=== PATIENT | male | born 1965 | race Caucasian/White ===

== ENCOUNTER → 2018-04-12 | Outpatient (CLI) | payer OTHER | END | disposition home or self-care (01) | LOC: RADPETMAIN 09:32 | PROVIDERS: ATTEND Radiology Radiation Oncology | DX: Z53.9 Procedure and treatment not carried out, unspecified reason (principal) ==

== ENCOUNTER → 2018-04-19 | Outpatient (CLI) | payer OTHER ==
--- NOTE | 2018-04-19 11:32 | PE ---
EXAMINATION TYPE: PET CT fusion skull to thigh DATE OF EXAM: 04/19/2018 COMPARISON: NONE HISTORY: Lung cancer initial staging study. TECHNIQUE: Following the intravenous administration of 13.657 mCi of F-18 FDG, whole body images are performed from the skull base to the midthigh. Images are reviewed on the computer in the coronal, axial, and sagittal planes. Reconstructed rotating images are created on independent workstation and reviewed on the computer. A noncontrast CT is performed in conjunction with the PET scan. SCAN: Initial Scan FINDINGS: SKULL BASE AND NECK: There is a roughly 8 mm hypermetabolic focus probable left supraclavicular danny opathy adjacent to left thyroid lobe axial image 61, max SUV is 2.9. CHEST, MEDIASTINUM, AND HILAR REGION: There is large cavitating left hilar mass encasing left lung br onchus and probable romina which is mild to moderately diffusely narrowed, there is mediastinal invas ion and subcarinal level, this area measures roughly 9.1 x 5.6 cm on axial image 94 with max SUV of 1 6.29. There is small level of focal pleural fluid inferiorly and posteriorly to this. There is additi onal groundglass opacity and edmond consolidation superior lateral aspect left lower lobe. There are a dditional suspicious nodules in the posterior aspect left upper lobe axial image 84, more posterior n odule shows mild increased hypermetabolic uptake with max tissue be of 2.63. There is hypermetabolic 9 x 7 mm right midlung nodule axial image 94 with max SUV of 3.69. There are additional thoracic hypermetabolic lymph nodes anterior superior mediastinum with largest j ust superior to brachiocephalic artery origin measuring roughly 2.2 x 1.6 cm axial image 74, max SUV is 12.56. There is abnormal prevascular 1.2 x 0.8 cm lymph node axial image 81 with max SUV of 9.34. There is a dditional left pericardial cyst tiny hypermetabolic focus difficult to localize to chest or abdomen a xial image 115 with max SUV of 2.74 measuring roughly 5 mm. ABDOMEN AND PELVIS: There is right hepatic lobe hypermetabolic hypodense lesion measuring 2.6 x 2.2 c m axial image 146, max SUV is 7.00. Additional hepatic metastatic lesion felt present near image 154 on PET images less well-seen on CT images, max SUV is 10.38 at this level. OSSEOUS STRUCTURES: No suspicious hypermetabolic uptake is present. OTHER CT: Coronary artery calcification is present which is noted marker for underlying coronary sumit ry disease. There is mild to moderate calcified plaque of the abdominal aorta extending to iliac branch vessels. Dependent density in bladder likely reflects small bladder calculi axial image 209 for reference. Enl arged prostate gland consistent with underlying BPH is present. There is facet arthropathy in the mid to lower lumbar spine noted. IMPRESSION: High-grade lung neoplasm as detailed above. TNM STAGING T4,N3,M1c AJCC STAGING Stage IVB.
== END | disposition home or self-care (01) ==
LOC: RADPETMAIN 08:04
PROVIDERS: ATTEND Radiology Radiation Oncology
DX: C34.32 Malignant neoplasm of lower lobe, left bronchus or lung (principal)
CPT/HCPCS: 78815; A9552

== ENCOUNTER → 2018-08-26 | Outpatient (CLI) | payer OTHER ==
[2018-08-26 10:26] LABS: African American GFR (CKD) >90 (>60 ml/min/1.73 sqM); Blood Urea Nitrogen 11 mg/dL (9-20)
--- NOTE | 2018-08-26 12:02 | CT ---
EXAMINATION TYPE: CT angio chest DATE OF EXAM: 08/26/2018 COMPARISON: PET/CT 04/19/2018 HISTORY: 53 year-old male left sided rib pain, PE TECHNIQUE: Contiguous axial scanning of the chest performed with IV Contrast, patient injected with 2 00 mL of Isovue 370. Coronal/sagittal MIP reconstructions performed. CT DLP: 289.7 mGycm Automated exposure control for dose reduction was used. FINDINGS: Heart normal size without pericardial effusion. Shift of the heart towards the left due to left hemit horacic volume loss. No flattening of the interventricular septum reflux of contrast into the hepatic veins. Aorta normal caliber with conventional arch vessel branching anatomy. Satisfactory opacification of pulmonary arterial system. Soft tissue encasement of the left main pulmonary artery narrowing its caliber. No definite pulmonary embolus seen. Progressive soft tissue along superior mediastinum partially encasing the superior aspect of the aort ic arch. Redemonstrated is soft tissue in the left hilar infrahilar region cutting off the left lower lobe mas s involving the collapsed left lower lobe and some underlying cavitary change. Multiple left-sided pulmonary nodules redemonstrated. Some of these nodules/masses appear improved we ll new lesions are present, for example, numerous nodules in the lingula axial image 67 measuring up to 1 cm. Focal areas of patchy opacities in the right lower lobe, axial image 80 and 83 are new. Some of the previously seen pulmonary nodules in the right are no longer identified but new nodules a re noted measuring up to 1.1 cm. Small left pleural effusion. Small hiatal hernia. Visualized upper abdomen show similar mild diffuse thickening of the left adrena l gland. Bones: No osseous destructive process seen. Moderate multilevel degenerative disc disease. IMPRESSION: 1. NO EVIDENCE FOR PULMONARY EMBOLUS. 2. REDEMONSTRATED LEFT HILAR AND INFRAHILAR NEOPLASM CUTTING OFF THE LEFT LOWER LOBE BRONCHUS AND INV OLVING THE COLLAPSED LEFT LOWER LOBE. 3. THERE ARE MIXED FINDINGS IN THE INTERVAL WITH RESOLUTION OF SOME OF THE PREVIOUS SATELLITE MASSES AND CONTRALATERAL RIGHT-SIDED PULMONARY NODULES BUT WITH NEW BILATERAL PULMONARY NODULES. OVERALL PRO GRESSION IS SUGGESTED GIVEN PROGRESSIVE CONGLOMERATE LYMPHADENOPATHY IN THE SUPERIOR MEDIASTINUM. 4. A COUPLE NEW PATCHY INFILTRATES IN THE RIGHT LOWER LOBE COULD REPRESENT INFECTIOUS/INFLAMMATORY FO CI. CORRELATE FOR ANY SYMPTOMS OF PNEUMONIA.
== END | disposition home or self-care (01) ==
LOC: RADCTMAIN 09:47
PROVIDERS: ATTEND Internal Medicine Hematology & Oncology
DX: R91.8 Other nonspecific abnormal finding of lung field (principal)
CPT/HCPCS: 82565; 84520; 71275; Q9967

== ENCOUNTER → 2019-01-06 | Outpatient (CLI) | payer OTHER ==
--- NOTE | 2019-01-06 17:59 | MR ---
EXAMINATION TYPE: MR brain wo/w con DATE OF EXAM: 01/06/2019 COMPARISON: None HISTORY: Lung Cancer / Dizziness / Unsteady Gait TECHNIQUE: Multiplanar, multisequence images of the brain and brainstem is performed without and with IV contras t, utilizing 6 mL intravenous Gadavist . FINDINGS: There is mild cerebral cortical atrophy. There is no mass effect nor midline shift. There i s no sign of intracranial hemorrhage. There is no evidence of acute cortical infarct. On the T2 and F LAIR images there are a few scattered foci of increased signal in the periventricular white matter. T otal number is less than 10 and the largest measures 8 mm in the right parietal lobe. Brainstem is in tact. Corpus callosum is intact. Sella turcica appears intact. The contrast images show no pathologic enhancement. There is normal contrast opacification of the venous sinuses. IMPRESSION: Mild atrophy. No evidence of metastatic disease. Mild white matter signal changes could relate to small vessel ischemia or demyelinating disease.
== END | disposition home or self-care (01) ==
LOC: RADMRIMAIN 16:57
PROVIDERS: ATTEND Internal Medicine Hematology & Oncology
DX: C34.30 Malignant neoplasm of lower lobe, unspecified bronchus or lung (principal); G31.9 Degenerative disease of nervous system, unspecified
CPT/HCPCS: 70553; A9585

== ENCOUNTER 2019-01-09 13:25 | Inpatient (IN) | payer OTHER ==
[2019-01-09] MEDS ORDERED: SODIUM CHLORIDE 0.9% 1,000 ML IV STA (14:05)
[2019-01-09] MEDS ORDERED: SODIUM CHLORIDE 0.9% 500 ML 500 ML IV STA (14:05)
[2019-01-09] MEDS ORDERED: HYDROmorphone 0.5 MG/0.5 ML SYRINGE IVP STA (14:10)
[2019-01-09] MEDS ORDERED: ADENOSINE 3 MG/ML 2 ML VIAL IVP STA (14:15)
[2019-01-09 14:31] LABS: Basophils # (A) 0.2 k/uL (0-0.2); Basophils % (A) 2 %; Eosinophils # (A) 0.3 k/uL (0-0.7); Eosinophils % (A) 2 %; HCT 43.2 % (39.0-53.0); HGB 13.6 gm/dL (13.0-17.5); Lymphocytes # (A) 0.4 k/uL (1.0-4.8); Lymphocytes % (A) 3 %; MCH 25.8 pg (25.0-35.0); MCHC 31.6 g/dL (31.0-37.0); MCV 81.6 fL (80.0-100.0); Mean Platelet Volume 7.5; Monocytes # (A) 0.6 k/uL (0-1.0); Monocytes % (A) 6 %; Neutrophils # (A) 9.2 k/uL (1.3-7.7); Neutrophils % (A) 85 %; Platelet Count 324 k/uL (150-450); RBC 5.29 m/uL (4.30-5.90); WBC 10.8 k/uL (3.8-10.6)
[2019-01-09] MEDS ORDERED: DILTIAZEM DRIP BOLUS FROM BAG 1 MG SOLN IV ONE (14:32)
[2019-01-09 14:41] LABS: ALT 48 U/L (21-72); AST 34 U/L (17-59); African American GFR (CKD) >90 (>60 ml/min/1.73 sqM); Albumin 3.4 g/dL (3.5-5.0); Alkaline Phosphatase 397 U/L (38-126); Anion Gap 11 mmol/L; Blood Urea Nitrogen 16 mg/dL (9-20); Calcium 11.5 mg/dL (8.4-10.2); Carbon Dioxide 26 mmol/L (22-30); Chloride 100 mmol/L (98-107); Glucose 134 mg/dL (74-99); Magnesium 1.9 mg/dL (1.6-2.3); Non-African American GFR(CKD) >90 (>60 ml/min/1.73 sqM); Potassium 4.1 mmol/L (3.5-5.1); Sodium 137 mmol/L (137-145); Total Bilirubin 0.6 mg/dL (0.2-1.3); Total Protein 6.7 g/dL (6.3-8.2)
[2019-01-09 14:46] LABS: D-Dimer 0.35 mg/L FEU (<0.60); Partial Thromboplastin Time 24.9 sec (22.0-30.0); Prothrombin Time 10.8 sec (9.0-12.0)
[2019-01-09] MEDS: DILTIAZEM 125 MG in SODIUM CHLORIDE 0.9% 100 ML IV SCH (14:48)
[2019-01-09] MEDS ORDERED: HEPARIN SODIUM,PORCINE 5,000 UNIT/ML 1 ML VIAL IV ONE (15:03)
[2019-01-09] MEDS ORDERED: HEPARIN SOD,PORK IN 0.45% NACL 25,000 UNIT in 0.45% NACL 1 250ML.BAG IV SCH (15:15)
--- NOTE | 2019-01-09 15:26 | ED ---
Medical Decision Making - Medical Decision Making PA attestation: I, Dr. Jose Edwards, personally saw and examined the patient. I have reviewed and agree with the resident/PA findings, including all diagnostic interpretations and treatment plans as written unless otherwise stated. I was present for the fox portions of any procedures performed and inclusive time noted for any critical care statement. Patient seen and evaluated along with physician Asst. Amanda Malin. Patient was brought to the emergency department for uncontrolled pain. Patient's history of liver and lung cancer. He was redirected from pain clinic to us. Patient was found to have initial heart rate in the 170s. There was concern for superventricular tachycardia. Patient is given adenosine which revealed underlying atrial flutter T waves. Patient started on Cardizem and heparin. Patient be admitted for new-onset atrial flutter. Patient is negative d-dimer. He has no symptoms to suggest pulmonary embolus at this time. Patient's rate was controlled with Cardizem infusion and bolus. Repeat vitals after rate c ontrol are stable. Patient will be admitted for new-onset atrial flutter/tachycardia dysrhythmia. Cardiology will be consulted. - Lab Data Result diagrams: 01/09/19 14:19 01/09/19 14:19 Lab Results 01/09/19 01/09/19 01/09/19 Range/Units 14:19 14:19 14:19 WBC 10.8 H (3.8-10.6) k/uL RBC 5.29 (4.30-5.90) m/uL Hgb 13.6 (13.0-17.5) gm/dL Hct 43.2 (39.0-53.0) % MCV 81.6 (80.0-100.0) fL MCH 25.8 (25.0-35.0) pg MCHC 31.6 (31.0-37.0) g/dL RDW 13.0 (11.5-15.5) % Plt Count 324 (150-450) k/uL Neutrophils % 85 % Lymphocytes % 3 % Monocytes % 6 % Eosinophils % 2 % Basophils % 2 % Neutrophils # 9.2 H (1.3-7.7) k/uL Lymphocytes # 0.4 L (1.0-4.8) k/uL Monocytes # 0.6 (0-1.0) k/uL Eosinophils # 0.3 (0-0.7) k/uL Basophils # 0.2 (0-0.2) k/uL PT 10.8 (9.0-12.0) sec INR 1.0 (<1.2) APTT 24.9 (22.0-30.0) sec D-Dimer 0.35 (<0.60) mg/L FEU Sodium 137 (137-145) mmol/L Potassium 4.1 (3.5-5.1) mmol/L Chloride 100 (98-107) mmol/L Carbon Dioxide 26 (22-30) mmol/L Anion Gap 11 mmol/L BUN 16 (9-20) mg/dL Creatinine 0.51 L (0.66-1.25) mg/dL Est GFR (CKD-EPI)AfAm >90 (>60 ml/min/1.73 sqM) Est GFR (CKD-EPI)NonAf >90 (>60 ml/min/1.73 sqM) Glucose 134 H (74-99) mg/dL Plasma Lactic Acid Delbert (0.7-2.0) mmol/L Calcium 11.5 H (8.4-10.2) mg/dL Magnesium 1.9 (1.6-2.3) mg/dL Total Bilirubin 0.6 (0.2-1.3) mg/dL AST 34 (17-59) U/L ALT 48 (21-72) U/L Alkaline Phosphatase 397 H (38-126) U/L Troponin I (0.000-0.034) ng/mL Total Protein 6.7 (6.3-8.2) g/dL Albumin 3.4 L (3.5-5.0) g/dL 01/09/19 01/09/19 Range/Units 14:19 14:35 WBC (3.8-10.6) k/uL RBC (4.30-5.90) m/uL Hgb (13.0-17.5) gm/dL Hct (39.0-53.0) % MCV (80.0-100.0) fL MCH (25.0-35.0) pg MCHC (31.0-37.0) g/dL RDW (11.5-15.5) % Plt Count (150-450) k/uL Neutrophils % % Lymphocytes % % Monocytes % % Eosinophils % % Basophils % % Neutrophils # (1.3-7.7) k/uL Lymphocytes # (1.0-4.8) k/uL Monocytes # (0-1.0) k/uL Eosinophils # (0-0.7) k/uL Basophils # (0-0.2) k/uL PT (9.0-12.0) sec INR (<1.2) APTT (22.0-30.0) sec D-Dimer (<0.60) mg/L FEU Sodium (137-145) mmol/L Potassium (3.5-5.1) mmol/L Chloride (98-107) mmol/L Carbon Dioxide (22-30) mmol/L Anion Gap mmol/L BUN (9-20) mg/dL Creatinine (0.66-1.25) mg/dL Est GFR (CKD-EPI)AfAm (>60 ml/min/1.73 sqM) Est GFR (CKD-EPI)NonAf (>60 ml/min/1.73 sqM) Glucose (74-99) mg/dL Plasma Lactic Acid Delbert 1.7 (0.7-2.0) mmol/L Calcium (8.4-10.2) mg/dL Magnesium (1.6-2.3) mg/dL Total Bilirubin (0.2-1.3) mg/dL AST (17-59) U/L ALT (21-72) U/L Alkaline Phosphatase (38-126) U/L Troponin I <0.012 (0.000-0.034) ng/mL Total Protein (6.3-8.2) g/dL Albumin (3.5-5.0) g/dL Critical Care Time Critical Care Time: Yes (31) Disposition Clinical Impression: Atrial flutter Disposition: ADMITTED IP TO THIS HOSP Condition: Fair Referrals: Nonstaff,Physician [Primary Care Provider] - 1-2 days Decision Time: 15:26
--- NOTE | 2019-01-09 15:27 | ED ---
Recheck HPI - General Chief Complaint: Recheck/Abnormal Lab/Rx Stated Complaint: CA PT, Side pain Time Seen by Provider: 01/09/19 13:33 Source: patient Mode of arrival: ambulatory Limitations: no limitations - History of Present Illness Initial Comments: 53-year-old male presenting to the emergency department today for chief complaint of pain and medication refill. Patient states that he has had issue between his oncologist and pain management he states his oncologist stated he must see pain management for pain medications however pain management because he is on Xanax for anxiety refuse to see him. Patient states he became anxious and having what he is called and anxiety attack at the infusion center. He states his pain is all over and he has no pain medications. He was told to come to the emergency department for medication refill. Patient also noted upon history taking that he has had generalized weakness ongoing for the past week with slight increase of baseline SOB. Admits to some left side discomfort. Patient denies leg swelling, hemoptysis, fever, increasing cough, nausea, epigastric pain. Remaining review of systems negative upon arrival patient's heart rate normal, however during initial history taking i personally took HR and pulse ox with HR of 171, patient transferred to trauma bay. - Related Data Allergies Allergy/AdvReac Type Severity Reaction Status Date / Time No Known Allergies Allergy Verified 01/09/19 13:32 Review of Systems ROS Statement: Those systems with pertinent positive or pertinent negative responses have been documented in the HPI. ROS Other: All systems not noted in ROS Statement are negative. Past Medical History Past Medical History: Coronary Artery Disease (CAD) Additional Past Medical History / Comment(s): Liver and lung CA. History of Any Multi-Drug Resistant Organisms: None Reported Past Surgical History: No Surgical Hx Reported Past Psychological History: No Psychological Hx Reported Smoking Status: Current every day smoker Past Alcohol Use History: None Reported Past Drug Use History: None Reported General Exam - General Exam Comments Initial Comments: General: The patient is awake and alert, in no distress Eye: +3 mm pupils are equal, round and reactive to light, extra-ocular movements are intact. No nystagmus. There is normal conjunctiva bilaterally. No signs of icterus. Ears, nose, mouth and throat: There are moist mucous membranes and no oral lesions. Neck: The neck is supple, there is no tenderness or JVD. Cardiovascular: There is a regular rate and rhythm. No murmur, rub or gallop is appreciated. Respiratory: Respirations are non-labored, breath sounds are equal. Mild expiratory wheeze, some rhonchi. No stridor, rales.. Gastrointestinal: Soft, non-distended, non-tender abdomen without masses or organomegaly noted. There is no rebound or guarding present. Musculoskeletal: Normal ROM, no tenderness. Strength 5/5. Sensation intact. Radial and DP pulses equal bilaterally 2+. Neurological: A&O x 3. CN II-XII intact grossly, There are no obvious motor or sensory deficits. Coordination appears grossly intact. Speech is normal. Skin: Skin is warm and dry and no rashes or lesions are noted. no LE edema b/l. No calf pain. Psychiatric: Cooperative, appropriate mood & affect, normal judgment. Limitations: no limitations Course Vital Signs 01/09/19 01/09/19 01/09/19 13:28 14:25 14:49 Temperature 98.6 F Pulse Rate 90 168 H Respiratory 22 16 Rate Blood Pressure 95/57 110/62 107/83 O2 Sat by Pulse 97 100 Oximetry 01/09/19 14:52 Temperature Pulse Rate 114 H Respiratory Rate Blood Pressure 99/68 O2 Sat by Pulse Oximetry Medical Decision Making - Medical Decision Making 53-year-old male presenting today for chief complaint of medication refill. Found to be in tachycardia at 171. Failed bearing down. Pt transferred to trauma bay. Attending notified. Recommended adenosine after reviewing EKG. Repeat EKG after adenosine reveals Atrial flutter placed on heparin and cardizem drip. Patient has no known history will be admitted for cardiology consultation. Patient agreeable remains dynamically stable with the emergency department. - Lab Data Result diagrams: 01/09/19 14:19 01/09/19 14:19 Lab Results 01/09/19 01/09/19 01/09/19 Range/Units 14:19 14:19 14:19 WBC 10.8 H (3.8-10.6) k/uL RBC 5.29 (4.30-5.90) m/uL Hgb 13.6 (13.0-17.5) gm/dL Hct 43.2 (39.0-53.0) % MCV 81.6 (80.0-100.0) fL MCH 25.8 (25.0-35.0) pg MCHC 31.6 (31.0-37.0) g/dL RDW 13.0 (11.5-15.5) % Plt Count 324 (150-450) k/uL Neutrophils % 85 % Lymphocytes % 3 % Monocytes % 6 % Eosinophils % 2 % Basophils % 2 % Neutrophils # 9.2 H (1.3-7.7) k/uL Lymphocytes # 0.4 L (1.0-4.8) k/uL Monocytes # 0.6 (0-1.0) k/uL Eosinophils # 0.3 (0-0.7) k/uL Basophils # 0.2 (0-0.2) k/uL PT 10.8 (9.0-12.0) sec INR 1.0 (<1.2) APTT 24.9 (22.0-30.0) sec D-Dimer 0.35 (<0.60) mg/L FEU Sodium 137 (137-145) mmol/L Potassium 4.1 (3.5-5.1) mmol/L Chloride 100 (98-107) mmol/L Carbon Dioxide 26 (22-30) mmol/L Anion Gap 11 mmol/L BUN 16 (9-20) mg/dL Creatinine 0.51 L (0.66-1.25) mg/dL Est GFR (CKD-EPI)AfAm >90 (>60 ml/min/1.73 sqM) Est GFR (CKD-EPI)NonAf >90 (>60 ml/min/1.73 sqM) Glucose 134 H (74-99) mg/dL Plasma Lactic Acid Delbert (0.7-2.0) mmol/L Calcium 11.5 H (8.4-10.2) mg/dL Magnesium 1.9 (1.6-2.3) mg/dL Total Bilirubin 0.6 (0.2-1.3) mg/dL AST 34 (17-59) U/L ALT 48 (21-72) U/L Alkaline Phosphatase 397 H (38-126) U/L Troponin I (0.000-0.034) ng/mL Total Protein 6.7 (6.3-8.2) g/dL Albumin 3.4 L (3.5-5.0) g/dL 11/22/19 11/22/19 Range/Units 14:19 14:35 WBC (3.8-10.6) k/uL RBC (4.30-5.90) m/uL Hgb (13.0-17.5) gm/dL Hct (39.0-53.0) % MCV (80.0-100.0) fL MCH (25.0-35.0) pg MCHC (31.0-37.0) g/dL RDW (11.5-15.5) % Plt Count (150-450) k/uL Neutrophils % % Lymphocytes % % Monocytes % % Eosinophils % % Basophils % % Neutrophils # (1.3-7.7) k/uL Lymphocytes # (1.0-4.8) k/uL Monocytes # (0-1.0) k/uL Eosinophils # (0-0.7) k/uL Basophils # (0-0.2) k/uL PT (9.0-12.0) sec INR (<1.2) APTT (22.0-30.0) sec D-Dimer (<0.60) mg/L FEU Sodium (137-145) mmol/L Potassium (3.5-5.1) mmol/L Chloride (98-107) mmol/L Carbon Dioxide (22-30) mmol/L Anion Gap mmol/L BUN (9-20) mg/dL Creatinine (0.66-1.25) mg/dL Est GFR (CKD-EPI)AfAm (>60 ml/min/1.73 sqM) Est GFR (CKD-EPI)NonAf (>60 ml/min/1.73 sqM) Glucose (74-99) mg/dL Plasma Lactic Acid Delbert 1.7 (0.7-2.0) mmol/L Calcium (8.4-10.2) mg/dL Magnesium (1.6-2.3) mg/dL Total Bilirubin (0.2-1.3) mg/dL AST (17-59) U/L ALT (21-72) U/L Alkaline Phosphatase (38-126) U/L Troponin I <0.012 (0.000-0.034) ng/mL Total Protein (6.3-8.2) g/dL Albumin (3.5-5.0) g/dL Disposition Clinical Impression: Atrial flutter Disposition: ADMITTED IP TO THIS HOSP Condition: Fair Referrals: Nonstaff,Physician [Primary Care Provider] - 1-2 days
--- NOTE | 2019-01-09 15:35 | XR ---
EXAMINATION TYPE: XR chest 2V DATE OF EXAM: 01/09/2019 COMPARISON: CT dated 08/26/2018 HISTORY: Weakness. Lung cancer per patient history. TECHNIQUE: Frontal and lateral views of the chest are obtained. FINDINGS: There is left hemithorax spine loss and redemonstration of numerous bilateral pulmonary no dules. Leftward mediastinal shift secondary to left basilar atelectasis in this patient with known pa rtial lung collapse and left basilar pulmonary mass. Multiple old fracture deformities are seen on th e right ribs. Cardiomediastinal silhouette is within normal limits. Gaseous distention of the stomach . Pleural thickening is redemonstrated as seen on the prior CT of 08/26/2018. IMPRESSION: Known bilateral pulmonary nodules with left lower lobe partial collapse and pulmonary ma ss as seen on the CT dated 09/05/2018.
[2019-01-09] MEDS ORDERED: NITROGLYCERIN SL TABS 0.4 MG TAB SUBLINGUAL PRN (15:39)
[2019-01-09] MEDS ORDERED: SODIUM CHLORIDE 0.9% 500 ML 500 ML IV ONE (15:42)
--- NOTE | 2019-01-09 16:48 | P.HPIM ---
History of Present Illness H&P Date: 01/09/19 Chief Complaint: pain all over 53-year-old male with a reported past medical history of stage IV lung cancer with metastasis to liver and lymph nodes presenting to the emergency department today for chief complaint of pain and medication refill. The patient is usually followed by Dr. Sánchez in clinic the patient reports to be on chemotherapy with keytruda infusions over the last 3 months, Patient states that he has had issue between his oncologist and pain management he states his oncologist stated he must see pain management for pain medications however pain management because he is on Xanax for anxiety refuse to see him. Apparently the patient was taking approximately 5-6 tabs of [place] 10mg daily. Patient states he became anxious and having what he is called and anxiety attack at the infusion center. He states his pain is all over and he has no pain medications. He was told to come to the emergency department for medication refill. Patient reports generalized weakness and episodes of lightheadedness during the last week. Patient denies leg swelling, hemoptysis, fever, increasing cough, nausea, epigastric pain. Apparently patient's daughter who is a nurse reports that the patient has had issues with atrial fibrillation previously has been on metoprolol, but this was discontinued secondary to the patient's blood pressure being unable to tolerate the medication due to hypotension. In the ER patient a comprehensive workup the patient was given IV adenosine [address] and the Cardizem drip and started on IV heparin Past Medical History Past Medical History: Coronary Artery Disease (CAD) Additional Past Medical History / Comment(s): Liver and lung CA. History of Any Multi-Drug Resistant Organisms: None Reported Past Surgical History: No Surgical Hx Reported Past Psychological History: No Psychological Hx Reported Smoking Status: Current every day smoker Past Alcohol Use History: None Reported Past Drug Use History: None Reported Medications and Allergies Home Medications Medication Instructions Recorded Confirmed Type ALPRAZolam [Xanax] 1 mg PO BID 01/09/19 01/09/19 History HYDROcodone/APAP 10-325MG [[place] 1 tab PO TID 01/09/19 01/09/19 History 10-325] Nicotine 14Mg/24Hr Patch [Habitrol 1 patch TRANSDERM DAILY 01/09/19 01/09/19 History 14Mg/24Hr Patch] Allergies Allergy/AdvReac Type Severity Reaction Status Date / Time No Known Allergies Allergy Verified 01/09/19 15:51 Physical Exam Vitals: Vital Signs Temp Pulse Resp BP Pulse Ox 01/09/19 15:43 96 16 97/72 99 01/09/19 14:52 114 H 99/68 01/09/19 14:49 168 H 16 107/83 100 01/09/19 14:25 110/62 01/09/19 13:28 98.6 F 90 22 95/57 97 Intake and Output 01/09/19 01/09/19 01/09/19 06:59 14:59 22:59 Other: Weight 58.967 kg Constitutional: No acute distress, conversant, pleasant Eyes: Anicteric sclerae, moist conjunctiva, no lid-lag, PERRLA ENMT: NC/AT,Oropharynx clear, no erythema, exudates Neck:Supple, FROM, no masses, or JVD, No carotid bruits; No thyromegaly Lungs: Clear to auscultation, Clear to percussion, Normal respiratory effort, no accessory muscle use Cardiovascular: Irregularly irregular, No murmurs, gallops, or rubs no peripheral edema Abdominal: Soft Nontender, nom distended, no guarding, no rebound or rigidity, Normoactive bowel sounds No hepatomegaly, No splenomegaly, No palpable mass No abdominal wall hernia noted Skin: Normal temperature, tone, texture, turgor, No induration No subcutaneous nodules, No rash, lesions, No ulcers Extremities:No digital cyanosis No clubbing, Pedal pulses intact and symmetrical Radial pulses intact and symmetrical Normal gait and station, No calf tenderness Psychiatric: Alert and oriented to person, place and time, Appropriate affect Intact judgement Neuro: Muscles Strength 5/5 in all 4 extremities, Sensation to light touch g rossly present throughout, Cranial nerves II-XII grossly intact. No focal sensory deficits Results CBC & Chem 7: 01/09/19 14:19 01/09/19 14:19 Labs: Abnormal Lab Results - Last 24 Hours (Table) 01/09/19 01/09/19 Range/Units 14: 14:19 WBC 10.8 H (3.8-10.6) k/uL Neutrophils # 9.2 H (1.3-7.7) k/uL Lymphocytes # 0.4 L (1.0-4.8) k/uL Creatinine 0.51 L (0.66-1.25) mg/dL Glucose 134 H (74-99) mg/dL Calcium 11.5 H (8.4-10.2) mg/dL Alkaline Phosphatase 397 H (38-126) U/L Albumin 3.4 L (3.5-5.0) g/dL Assessment and Plan Assessment: Assessment Atrial fibrillation with RVR Stage IV lung cancer Intractable pain h/o paroxysmal Afib Anxiety disorder Plan: Patient is admitted anticipated greater than 2 midnight stay with A. fib/atrial flutter with RVR after presenting to the ER with intractable pain patient was given adenosine 2 L of fluids and placed on a Cardizem drip along with IV heparin. Patient has continued to monitored closely on telemetry with plans for cardiology consultation, will order TSH and a 2-D echocardiogram. Chest x-ray showed known bilateral pulmonary nodules with left lower lobe partial collapse and pulmonary masses seen on the CT and the patient has a known history of stage IV lung cancer that is seen in oncology clinic by Dr. Sánchez who will be consulted. We'll try the patient on MS Contin and Tylenol. We'll continue to monitor patient closely and continue to follow his clinical course. CODE STATUS full code Discussed plan of care with: Patient and his daughter medical decision surrogate: Daughter Rebeca Anticipated discharge place: Home Prophylaxis: On IV heparin
[2019-01-09] MEDS ORDERED: ACETAMINOPHEN TAB 325 MG TAB PO PRN (16:54)
[2019-01-09] MEDS: MORPHINE SULFATE ER 15 MG TABLET PO SCH (17:41)
[2019-01-09] MEDS: SODIUM CHLORIDE 0.9% 1,000 ML IV SCH (18:48)
[2019-01-09] MEDS: ALPRAZolam 1 MG TAB PO SCH (19:55)
[2019-01-09 19:56] LABS: Appearance,Urine Clear (Clear); Bilirubin,Urine Negative (Negative); Blood,Urine Small (Negative); Color,Urine Yellow; Glucose,Urine (UA) Negative (Negative); Ketones,Urine Negative (Negative); Leukocyte Esterase,Urine Negative (Negative); Mucus,Urine Rare /hpf; Nitrite,Urine Negative (Negative); Protein,Urine Negative (Negative); RBC,Urine 5 /hpf (0-5); Specific Gravity,Urine 1.015 (1.001-1.035); Urobilinogen,Urine <2.0 mg/dL (<2.0)
[2019-01-09] MEDS: HEPARIN SODIUM,PORCINE 5,000 UNIT/ML 1 ML VIAL IV PRN (22:11)
[2019-01-09] MEDS ORDERED: MORPHINE SULFATE 4 MG/ML SYRINGE IVP STA (23:08)
[2019-01-10 03:56] LABS: Cholesterol 113 mg/dL (<200); HDL Cholesterol 30 mg/dL (40-60); LDL Cholesterol,Calculated 71 mg/dL (0-99); Triglycerides 59 mg/dL (<150)
[2019-01-10] MEDS: HEPARIN SODIUM,PORCINE 5,000 UNIT/ML 1 ML VIAL IV PRN (04:07)
[2019-01-10] MEDS: SODIUM CHLORIDE 0.9% 1,000 ML IV SCH (04:07)
[2019-01-10] MEDS: DILTIAZEM 125 MG in SODIUM CHLORIDE 0.9% 100 ML IV SCH (04:08)
[2019-01-10] MEDS: ALPRAZolam 1 MG TAB PO SCH ×2 (08:18→20:38)
[2019-01-10] MEDS: MORPHINE SULFATE ER 15 MG TABLET PO SCH (08:18)
[2019-01-10] MEDS ORDERED: ASPIRIN 325 MG TAB PO SCH (09:00)
[2019-01-10 11:45] VITALS: BMI 19.1
--- NOTE | 2019-01-10 14:05 | ECHOF ---
Referral Reason:atrial flutter/afib MEASUREMENTS -------- HEIGHT: 172.7 cm WEIGHT: 56.7 kg BP: 159/60 RVIDd: 3.1 cm (< 3.3) IVSd: 1.0 cm (0.6 - 1.1) LVIDd: 4.1 cm (3.9 - 5.3) LVPWd: 1.5 cm (0.6 - 1.1) IVSs: 1.5 cm LVIDs: 3.1 cm LVPWs: 2.0 cm LA Diam: 3.6 cm (2.7 - 3.8) LAESV Index (A-L): 21.46 ml/m Ao Diam: 3.4 cm (2.0 - 3.7) AV Cusp: 1.8 cm (1.5 - 2.6) LA Diam: 3.4 cm (2.7 - 3.8) MV EXCURSION: 17.918 mm (> 18.000) MV EF SLOPE: 119 mm/s (70 - 150) EPSS: 0.5 cm MV E Rigoberto: 0.60 m/s MV DecT: 203 ms MV A Rigoberto: 0.81 m/s MV E/A Ratio: 0.74 RAP: 5.00 mmHg RVSP: 34.14 mmHg FINDINGS -------- Sinus rhythm. This was a technically good study. LV size, wall thickness and systolic function are normal, with an EF greater than 55%. The left sandi tricular size is normal. Overall left ventricular systolic function is normal with, an EF between 5 5 - 60 %. The diastolic filling pattern is normal for the age of the patient 9.25. The right ventricle is normal in size. Normal LA size by volume 22+/-6 ml/m2. The right atrial size is normal. The aortic valve is trileaflet, and appears structurally normal. No aortic stenosis or regurgitation. The mitral valve leaflets are mildly thickened. Mild mitral regurgitation is present. Mild tricuspid regurgitation present. Right ventricular systolic pressure is normal at < 35 mmHg. There is no evidence of pulmonary hypertension. There is no pulmonic regurgitation present. The aortic root size is normal. There is no pericardial effusion. CONCLUSIONS -------- 1. Sinus rhythm. 2. This was a technically good study. 3. LV size, wall thickness and systolic function are normal, with an EF greater than 55%. 4. The left ventricular size is normal. 5. Overall left ventricular systolic function is normal with, an EF between 55 - 60 %. 6. The diastolic filling pattern is normal for the age of the patient 9.25 7. Normal LA size by volume 22+/-6 ml/m2. 8. The aortic valve is trileaflet, and appears structurally normal. No aortic stenosis or regurgitati on. 9. The mitral valve leaflets are mildly thickened. 10. Mild mitral regurgitation is present. 11. Mild tricuspid regurgitation present. 12. Right ventricular systolic pressure is normal at < 35 mmHg. 13. There is no pulmonic regurgitation present. 14. The aortic root size is normal. 15. There is no pericardial effusion. CHRONOGRAPH OPERATOR: Joycelyn Walton RDCS
--- NOTE | 2019-01-10 16:32 | CONS ---
CONSULTATION Mr. Specne is a 53-year-old male with stage IV lung CA, receiving chemotherapy by Dr. Sánchez, who presented because of generalized discomfort for pain management. In the emergency room, he was noted to be in atrial flutter with rapid ventricular response. He is back in sinus mechanism. According to the patient, he has no history of atrial arrhythmia, although the note says that he had a prior episode of atrial arrhythmia including atrial fibrillation and was on metoprolol that was stopped because of hypotension. The patient did not feel any palpitation. He is unaware of the arrhythmia. He denies any dizziness. He denies any syncope, but he has the valles that he gets on and off. He has a history of lung cancer as noted. He has lost weight. He has no PND or orthopnea. He has no history of stroke. He had a remote history of hypertension, but not recently. He has not been on any medication. He has stopped smoking 4 months ago. MEDICATION: His only medications at home include Cozad, Xanax and the nicotine patch in addition to his chemotherapy. REVIEW OF SYSTEMS: RESPIRATORY system: He has dyspnea on exertion, cough. He has the lung cancer. GI system: No recent GI bleeding. No peptic ulcer disease. system: No dysuria or hematuria. Nervous system: No stroke or seizure. Social history: No alcohol abuse. He has stopped smoking as noted. PHYSICAL EXAMINATION: 53-year-old male, alert, oriented, no apparent distress. Appears older than stated age. Blood pressure running in the low 100s to high 90s. Heart rate down to the 70s. HEAD: Normocephalic. Eyes: Sclerae anicteric. NECK: Good carotid upstroke. No bruit. LUNGS decreased air exchange. No wheezes. HEART: Regular rate and rhythm S1, S2. No S3. No rub appreciated. ABDOMEN: Soft, nontender. Positive bowel sounds. No organomegaly. EXTREMITIES: No edema. LAB DATA: Lab data revealed troponin less than 0.012 and 0.015. BUN and creatinine 16 and 0.51. Hemoglobin of 13.6, white blood cell of 10.8. TSH of 1.74. Cholesterol 113, LDL of 71. EKG revealed atrial flutter with 2:[address]-T wave changes. Patient is in sinus mechanism at this time. IMPRESSION: 1. Atrial fibrillation-flutter. The patient is unaware of the arrhythmia. According to the notes, the patient had a prior history of atrial fibrillation, although he denies any similar events. 2. History of stage IV lung cancer. 3. Prior history of smoking. RECOMMENDATION: Patient Chads Vasc 2 score is 0. At this time, I will stop the heparin and the Cardizem. I will obtain echocardiogram with Doppler. I will restart him on low-dose beta chandu, increase his level of activity and depending on his progress, further recommendations will be made. Thank you for this consult. We will follow with you. MMODL / IJN: [id number] /
--- NOTE | 2019-01-10 16:35 | P.PN ---
Subjective Progress Note Date: 01/10/19 The patient's and examined at bedside, reporting his pain is satisfactorily controlled, currently converted to sinus rhythm overnight. Seen By cardiology earlier today. We'll follow-up echocardiogram results. No acute events overnight, his blood pressure continues to be borderline patient asymptomatic Objective - Vital Signs Vital signs: Vital Signs Temp 97.8 F 01/10/19 15:51 Pulse 78 01/10/19 15:51 Resp 20 01/10/19 15:51 BP 89/61 01/10/19 15:51 Pulse Ox 98 01/10/19 15:51 Intake & Output 01/09/19 01/10/19 01/10/19 18:59 06:59 18:59 Intake Total 2120 544.655 5923 Output Total 1400 1150 Balance 2120 -1182.305 370 Weight 58.967 kg 56.9 kg 56.9 kg Intake: IV 500 Sodium Chloride 0.9% 500 500 ml 500 ml @ 999 mls/hr IV .Q31M [facility] Rx#:[id number] Amount of Fluid Infused ( 1500 ml) Intake, IV Titration 217.695 800 Amount Diltiazem 125 mg In 125 Sodium Chloride 0.9% 100 ml @ 10 MG/HR 10 mls/hr IV .[id number] [facility] Rx#: [id number] Heparin Sod,Pork in 0.45% 92.695 NaCl 25,000 unit In 0.45 % NaCl 1 250ml.bag @ 12 UNITS/KG/HR 7.076 mls/hr IV .Q24H [facility] Rx#: [id number] Sodium Chloride 0.9% 1, 800 000 ml @ 100 mls/hr IV . Q10H [facility] Rx#:[id number] Oral 120 720 Output: Urine 1400 1150 Other: Voiding Method Urinal Urinal # Voids 1 - Exam Constitutional: No acute distress, conversant, pleasant, cachectic Eyes: Anicteric sclerae, moist conjunctiva, no lid-lag, PERRLA ENMT: NC/AT,Oropharynx clear, no erythema, exudates Neck:Supple, FROM, no masses, or JVD, No carotid bruits; No thyromegaly Lungs: Clear to auscultation, Clear to percussion, Normal respiratory effort, no accessory muscle use Cardiovascular: Heart regular in rate and rhythm, No murmurs, gallops, or rubs no peripheral edema Abdominal: Soft Nontender, nom distended, no guarding, no rebound or rigidity, Normoactive bowel sounds No hepatomegaly, No splenomegaly, No palpable mass No abdominal wall hernia noted Skin: Normal temperature, tone, texture, turgor, No induration No subcutaneous nodules, No rash, lesions, No ulcers Extremities:No digital cyanosis No clubbing, Pedal pulses intact and symmetrical Radial pulses intact and symmetrical Normal gait and station, No calf tenderness Psychiatric: Alert and oriented to person, place and time, Appropriate affect Intact judgement Neuro: Muscles Strength 5/5 in all 4 extremities, Sensation to light touch grossly present throughout, Cranial nerves II-XII grossly intact. No focal sensory deficits - Labs CBC & Chem 7: 01/09/19 14:19 01/09/19 14:19 Labs: Abnormal Lab Results - Last 24 Hours (Table) 01/09/19 01/10/19 01/10/19 Range/Units 19:15 03:23 03:23 APTT 30.8 H (22.0-30.0) sec HDL Cholesterol 30 L (40-60) mg/dL Urine Blood Small H (Negative) Urine Mucus Rare H (None) /hpf 01/10/19 Range/Units 09:31 APTT 30.4 H (22.0-30.0) sec HDL Cholesterol (40-60) mg/dL Urine Blood (Negative) Urine Mucus (None) /hpf Assessment and Plan Assessment: Atrial fibrillation with RVR * Converted to normal sinus rhythm while on Cardizem, agree with transition to metoprolol * Anticoagulation with heparin discontinued * Echocardiogram with preserved LVEF of 55% without any significant valvular abnormalities Stage IV lung cancer * Hematology oncology Dr. Costello consulted for further recommendations Intractable pain * Likely related to his cancer * Continue with current MS Contin dose Anxiety disorder * Continue Xanax h/o paroxysmal Afib Disposition * Awaiting further recommendations from consultants * Approaching discharge goals anticipate discharge in 1-2 days
[2019-01-10] MEDS ORDERED: IOPAMIDOL CONTRAST (ORAL USE) VIAL PO PRN (17:47)
[2019-01-10] MEDS: MORPHINE SULFATE 2 MG/ML SYRINGE IVP PRN (20:47)
--- NOTE | 2019-01-10 22:08 | CONS ---
CONSULTATION DATE OF SERVICE: January 10, 2019. REASON FOR CONSULTATION: Lung carcinoma. CHIEF COMPLAINT: Chest pain. HISTORY OF PRESENT ILLNESS: Jarett is a pleasant 53-year-old gentleman very well known to our practice. 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 Subsequently underwent navigational bronchoscopy. Biopsy was consistent with squamous cell carcinoma of the lung. He had a PET scan done today which confirmed large cavitating mass. The cavitating mass and carinal and mediastinal invasion. He was found to have evidence of metastatic disease. His PDA 1 was positive at 70% and there was no actionable mutation found on Nex[employer] sequencing. The patient was started on a single agent Keytuda on 08/06/2018. The patient has had significant issue with left chest pain which has gotten progressively worse. He feels tired. He lost a lot of weight. He denies any fever or chills, nausea, or vomiting. He had episodes of dizziness. He did have a brain MRI in outpatient setting recently and it was negative for metastatic disease. He did have a repeat CT scan after initiation of treatment on August 26, 2018, which was to be mixture of response. However, it was felt by Dr. Sánchez to continue with immunotherapy, at that point in time. The patient came into the ER because of his pain issue and they are trying to set him up with [facility]. However, they declined seeing him due to his has been using Xanax as well. His pain got progressively worse and so he came into the emergency department and ended up being admitted to the hospital for pain management. He was found to have atrial fibrillation with rapid ventricular response, which converted to sinus rhythm while on Cardizem. PAST MEDICAL HISTORY: Is significant in addition to what is stated above in regard to his lung carcinoma, he has a history of coronary artery disease. Also has a history of anxiety and history of hypertension. MEDICATION AND ALLERGIES: Are reviewed in the medical and electronic medical record. FAMILY HISTORY: His mother and father both had lung cancer. SOCIAL HISTORY: He has been smoking for 35 years, about 1-2 packs cigarettes daily. He drinks 1-2 beers in the evening. No illicit drug abuse. REVIEW OF SYSTEMS: Significant left-sided sided chest pain. He described as 10/10 in severity. No nausea or vomiting. No good appetite, lost weight. He feels dizzy. No nausea or vomiting. No melena, hematochezia, hemoptysis, hematemesis or epistaxis. No fever or chills. PHYSICAL EXAMINATION: He is alert, oriented x3. He does appear in pain at this point in time. His vital signs are temperature 97.8, pulse 78 and regular, respirations 20, blood pressure 89/61. HEENT: Normocephalic, atraumatic. No obvious icterus. NECK: Supple. CHEST equal expansion bilaterally. LUNGS: Decreased breath sounds in the left lower lobe. HEART is tachy, regular. ABDOMEN: Soft. No organomegaly. EXTREMITIES reveal no edema. SKIN: No significant bruise, ecchymosis or petechia. LYMPHATICS: No peripherally enlarged cervical or supraclavicular nodes. MUSCULOSKELETAL: He has significant percussion tenderness in the ribs and the anterior left ribs. LABORATORY DATA: WBC are 10.8, hemoglobin 13.6, hematocrit 43.2, platelets are 342. Sodium 137, potassium 4.1, chloride 100, CO2 is 27, BUN is 16, creatinine 0.5, calcium is 11.5, alkaline phosphatase 397. Albumin is 3.4. IMPRESSION: 1. Intractable left-sided chest pain. This is likely related to his lung malignancy appear to be progressing. 2. Hypercalcemia. This is also suspected to be related to underlying malignancy. 3. 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 4. Atrial fibrillation with rapid ventricular response. RECOMMENDATIONS: 1. I would recommend to repeat CT scan of the chest and abdomen while he is in the hospital. His last imaging study was in August of this year. 2. In regard to his pain management, we will adjust his pain medication today. Hopefully would get his pain under better control. 3. IV hydration for his hypercalcemia. If no improvement, may consider treating with bisphosphonate. 4. I emphasized to him the importance of followup with Dr. Sánchez in the outpatient setting. The above was discussed with the patient's daughter at bedside and I answered all their questions. Thank you very much for asking me to see and participate in the care of this nice gentleman. MMODL / IJN: [id number] /
[2019-01-10] MEDS: METOPROLOL TARTRATE 25 MG TAB PO SCH (22:57)
[2019-01-10] MEDS: MORPHINE SULFATE ER 30 MG TABLET PO SCH (22:58)
[2019-01-11] MEDS: MORPHINE SULFATE 2 MG/ML SYRINGE IVP PRN (00:50)
--- NOTE | 2019-01-11 02:33 | CT ---
EXAMINATION TYPE: CT ChestAbdPelvis wo/w con DATE OF EXAM: 01/10/2019 COMPARISON: HISTORY: Follow up for lung cancer. CT DLP: 1168.1 mGycm Automated exposure control for dose reduction was used. CONTRAST: CT scan of the chest, abdomen and pelvis is performed with Oral Contrast and without and with IV Cont rast, patient injected with 100ml mL of Isovue 300. FINDINGS: There are numerous rounded masses in the left lung and also in the right upper lobe. These measure mo stly less than 2 cm. There is a large mass at the posterior left pulmonary hilum that is encasing the left pulmonary artery. Mass measures 7 cm in length. Left pulmonary artery is essentially occluded. There are few left upper lobe arterial branches that are opacified. There is increased density in the subcarinal region that measures 3.5 cm consistent with malignant adenopathy. Trachea is intact. Ther e is narrowing of the right mainstem bronchus which is also encased with mass. There is a mild patchy infiltrate in the right midlung. There is mild left pleural effusion. I see no filling defect in the pulmonary arteries. Thoracic aorta shows no aneurysm or dissection. There are numerous masses throughout the liver of variable size. These have low attenuation and the l argest measures almost 5 cm. The masses show ring enhancement. The bile ducts are not dilated. Pancre as is intact. Spleen is intact. Stomach is intact. There is no adrenal mass. Kidneys show satisfactory contrast opacification. There is no hydronephrosi s. There is mild ascites fluid. Bladder distends smoothly. There is prostatic calcification. There is no inguinal hernia. There is no sign of a bowel obstruction. The thoracic and lumbar spine are intact. Sternum is intact. The bony pelvis is intact. There is no c ompression fracture. There are a few old posterior right rib fractures. There is old healed lateral right rib fracture. IMPRESSION: Large mass at the inferior left pulmonary hilum with encasement of the left pulmonary art deonte and the left lower lobe bronchus consistent with malignant tumor. There is extensive nodular mass es in the left upper lobe consistent with additional tumor or metastatic disease. This also involves the right upper lobe. Subcarinal adenopathy. Multiple ring-enhancing variable sized liver masses consistent with metastatic disease. These appear new or significantly increased compared to the last CT scan. The lung abnormalities show some progres oliver with increased in the size of the masses and obstruction of the left lower lobe pulmonary artery compared to last exam.
[2019-01-11 06:41] LABS: ALT 45 U/L (21-72); AST 25 U/L (17-59); African American GFR (CKD) >90 (>60 ml/min/1.73 sqM); Albumin 2.8 g/dL (3.5-5.0); Alkaline Phosphatase 341 U/L (38-126); Anion Gap 7 mmol/L; Blood Urea Nitrogen 12 mg/dL (9-20); Calcium 10.1 mg/dL (8.4-10.2); Carbon Dioxide 28 mmol/L (22-30); Chloride 102 mmol/L (98-107); Glucose 103 mg/dL (74-99); Non-African American GFR(CKD) >90 (>60 ml/min/1.73 sqM); Potassium 3.8 mmol/L (3.5-5.1); Sodium 137 mmol/L (137-145); Total Bilirubin 0.4 mg/dL (0.2-1.3); Total Protein 5.6 g/dL (6.3-8.2)
[2019-01-11] MEDS: METOPROLOL TARTRATE 25 MG TAB PO SCH (08:33)
[2019-01-11] MEDS: ALPRAZolam 1 MG TAB PO SCH (08:36)
[2019-01-11] MEDS: MORPHINE SULFATE ER 30 MG TABLET PO SCH (08:36)
[2019-01-11] MEDS: SODIUM CHLORIDE 0.9% 1,000 ML IV SCH ×3 (08:40→08:42)
[2019-01-11 09:19] VITALS: RESP 20; TEMP 97.7
--- NOTE | 2019-01-11 10:07 | PN ---
PROGRESS NOTE Mr. Spence is a 53-year-old male with known history of lung carcinoma with metastasis, who presented with an episode of atrial flutter with rapid ventricular response. He is back in sinus mechanism. He continues to have chest wall discomfort. He denies any change in his breathing. He denies any nausea or vomiting. He was seen by Dr. Costello regarding his malignancy status. The patient did not take the beta chandu because he felt that it caused hypotension in the past and has declined at this time. He continues to be on IV fluids because of hypercalcemia. PHYSICAL EXAMINATION: Blood pressure 102/60 with a heart rate in the 80s. LUNGS: Decreased air exchange. No wheezes. HEART: Regular rate and rhythm S1, S2. No S3. No rub appreciated. ABDOMEN: Soft, nontender. EXTREMITIES: No edema. LAB DATA: Lab data revealed BUN and creatinine 12 and 0.44. His alkaline phosphatase of 341. His calcium is 10.1. IMPRESSION: 1. Lung carcinoma with metastasis. 2. Paroxysmal atrial flutter, back in sinus mechanism with Gustavo Vasc score 2 of 1. RECOMMENDATIONS: Patient had an echocardiogram yesterday that revealed a preserved systolic function with a mild mitral and tricuspid regurgitation. At this time, we will continue clinical observation, I see no indication for any other workup. Unfortunately, the prognosis remains very poor because of his stage IV lung cancer. We will see him on as- needed basis. Please feel free to call us for any questions. MMODL / IJN: [id number] /
[2019-01-11 11:20] VITALS: BP 108/76; PULSE 89
--- NOTE | 2019-01-11 11:28 | P.DS ---
Providers Date of admission: 01/09/19 15:39 Expected date of discharge: 01/11/19 Attending physician: Gustavo Ocasio MD Consults: 01/09/19 15:04 Consult Physician Routine Consulting Provider: Steven Hernandez Consult Reason/Comments: new onset aflutter Do you want consulting provider notified?: Yes 01/09/19 16:52 Consult Physician Routine Consulting Provider: Woodrow Sánchez Consult Reason/Comments: stage iv lung cancer Do you want consulting provider notified?: Yes Primary care physician: Physician Nonstaff Hospital Course: Discharge diagnosis Paroxysmal A. fib flutter Intractable left-sided chest pain due to malignancy Stage IV squamous carcinoma of the lung Hypercalcemia Anxiety Hospital course The patient is a 53-year-old male with a past medical history of stage IV squamous carcinoma of the lung previously on chemotherapy with Keytruda previously seen by Dr. Sánchez who presented with intractable left-sided chest pain and was found to be in paroxysmal A. fib.the patient was started on Cardizem Drip and placed on IV heparin and placed on telemetry floor. He subsequently converted and was transitioned to metoprolol, his anticoagulation was discontinued secondary to low GUSTAVO VASC2 score of 1 . Echocardiogram showed a preserved LVEF with mild mitral and tricuspid regurgitation The patient had previously had an appointment with pain management however they refuse to see the patient secondary to the fact that he was using Xanax as well. Patient was given a dose of Dilaudid in the ER and transitioned to MS Contin 15 mg PO BID which controlled his pain and brought down to approximately about 3. He was subsequently cleared for discharge he refused to continue taking metoprolol as he had previously been on beta blockers and it caused him to have episodes of weakness fatigue and lightheadedness. He was subsequently discharged home in stable condition and instructed to follow-up with his PCP and Dr. Sánchez. This discharge process took approximately 35 minutes Focused exam Cardiovascular: Regular rate and rhythm, no murmurs , rubs or gallop Patient Condition at Discharge: Fair Plan - Discharge Summary New Discharge Prescriptions: New Morphine Sulfate ER [Ms Contin] 30 mg PO Q12HR #14 tablet Continue Nicotine 14Mg/24Hr Patch [Habitrol] 1 patch TRANSDERM DAILY ALPRAZolam [Xanax] 1 mg PO BID Discontinued HYDROcodone/APAP 10-325MG [[place] 10-325] 1 tab PO TID Discharge Medication List ALPRAZolam [Xanax] 1 mg PO BID 01/09/19 [History] Nicotine 14Mg/24Hr Patch [Habitrol] 1 patch TRANSDERM DAILY 01/09/19 [History] Morphine Sulfate ER [Ms Contin] 30 mg PO Q12HR #14 tablet 01/11/19 [Rx] Follow up Appointment(s)/Referral(s): Nonstaff,Physician [Primary Care Provider] - 1-2 days Discharge Disposition: HOME SELF-CARE
== END 2019-01-11 12:40 | disposition home or self-care (01) | DRG 309 ==
LOC: EC 13:25 → 3SCARD 15:39
PROVIDERS: ADMIT Family Medicine; ATTEND Family Medicine
DX: I48.92 Unspecified atrial flutter (principal); C34.92 Malignant neoplasm of unspecified part of left bronchus or lung; C34.91 Malignant neoplasm of unspecified part of right bronchus or lung; C22.8 Malignant neoplasm of liver, primary, unspecified as to type; G89.3 Neoplasm related pain (acute) (chronic); E83.52 Hypercalcemia; F17.200 Nicotine dependence, unspecified, uncomplicated; F41.1 Generalized anxiety disorder; I10 Essential (primary) hypertension; I25.10 Atherosclerotic heart disease of native coronary artery without angina pectoris; Z80.1 Family history of malignant neoplasm of trachea, bronchus and lung; Z85.118 Personal history of other malignant neoplasm of bronchus and lung; Z92.21 Personal history of antineoplastic chemotherapy
CPT/HCPCS: 36415; 71046; 71270; 74178; 80053; 80061; 81001; 83605; 83735; 84443; 84484; 85025; 85379; 85610; 85730; 93005; 93306; 96365; 96366; 96375; 96376; 99285